=== PATIENT | male | born 1975 | race Caucasian/White ===

== ENCOUNTER 2017-07-24 02:44 | Day surgery (SDC) | payer MEDICAID, OTHER ==
[2017-07-24] MEDS ORDERED: NS 1,000 ML IV ONE (03:11)
[2017-07-24] MEDS ORDERED: ONDANSETRON 4 MG/2 ML VIAL IVP ONE ×2 (03:11→05:33)
--- NOTE | 2017-07-24 03:12 | EDPHY ---
H & P Stated Complaint: MID ABD PAIN/NAUSEA Time Seen by Provider: 07/24/17 02:57 HPI/ROS: Chief Complaint: Abdominal pain HPI: 42-year-old male began having central abdominal pain about 4 hr ago. This been associated with some nausea and vomiting. No diarrhea or constipation. Does not have a history of similar pain in the past. Pain comes in waves ranging from a 7 to a 9/10. No fevers or chills. No cough. There are no aggravating or alleviating factors. Has not had any abdominal operations in the past. ROS: 10 point Review of Systems is negative except as noted in the HPI. PMH: Schwannoma Social History: No smoking, no alcohol, no recreational drug use Family History: non-contributory Physical Exam: Gen: Awake, Alert, No Distress HEENT: Nose: no rhinorrhea Eyes: PERRLA, EOMI Mouth: Moist mucosa Neck: Supple, no JVD Chest: nontender, lungs clear to auscultation Heart: S1, S2 normal, no murmur Abd: Soft, tender in the right lower quadrant central abdomen, mild voluntary guarding Back: no CVA tenderness, no midline tenderness Ext: no edema, non-tender Skin: no rash Neuro: CN II-XII intact, Sensation grossly intact, Strength 5/5 in bilateral upper and lower extremities - Personal History Current Tetanus Diphtheria and Acellular Pertussis (TDAP): No - Medical/Surgical History Hx Asthma: No Hx Chronic Respiratory Disease: No Hx Diabetes: No Hx Cardiac Disease: No Hx Renal Disease: No Hx Cirrhosis: No Hx Alcoholism: No Hx HIV/AIDS: No Hx Splenectomy or Spleen Trauma: No Other PMH: WPW, fibramylagia, "fatty liver", migraines, BRAIN TUMOR - Social History Smoking Status: Never smoked Constitutional: Initial Vital Signs Temperature (C) 36.4 C 07/24/17 02:54 Heart Rate 80 07/24/17 02:54 Respiratory Rate 16 07/24/17 02:54 Blood Pressure 132/86 H 07/24/17 02:54 O2 Sat (%) 94 07/24/17 02:54 O2 Delivery Mode Room Air Allergies/Adverse Reactions: ketorolac tromethamine [From Toradol] Allergy (Verified 08/03/14 09:48) Home Medications: Medication Instructions Recorded Herbal Drugs 08/09/16 Otc Allergy Med PO DAILY06 12/19/15 Cyclobenzaprine 07/24/17 Medical Decision Making - Diagnostics Imaging Results: CT scan of the abdomen pelvis shows a 9 mm appendix with an appendicolith and richard appendicular edema consistent with acute appendicitis. Interpreted by Dr. Og. Imaging: Discussed imaging studies w/ railway signal operator Radiologist ED Course/Re-evaluation: CT scan consistent with acute appendicitis. I have paged General surgery. - Data Points Laboratory Results: Laboratory Results 07/24/17 03:09 07/24/17 03:09 07/24/17 07/24/17 03:09 03:09 WBC 13.20 10^3/uL H 10^3/uL (3.80-9.50) RBC 5.56 10^6/uL 10^6/uL (4.40-6.38) Hgb 16.1 g/dL g/dL (13.7-17.5) Hct 46.3 % % (40.0-51.0) MCV 83.3 fL fL (81.5-99.8) MCH 29.0 pg pg (27.9-34.1) MCHC 34.8 g/dL g/dL (32.4-36.7) RDW 13.0 % % (11.5-15.2) Plt Count 227 10^3/uL 10^3/uL (150-400) MPV 9.5 fL fL (8.7-11.7) Neut % (Auto) 77.7 % H % (39.3-74.2) Lymph % (Auto) 14.2 % L % (15.0-45.0) [place] % (Auto) 6.1 % % (4.5-13.0) Eos % (Auto) 1.0 % % (0.6-7.6) Baso % (Auto) 0.3 % % (0.3-1.7) Nucleat RBC Rel Count 0.0 % % (0.0-0.2) Absolute Neuts (auto) 10.26 10^3/uL H 10^3/uL (1.70-6.50) Absolute Lymphs (auto) 1.87 10^3/uL 10^3/uL (1.00-3.00) Absolute Monos (auto) 0.81 10^3/uL H 10^3/uL (0.30-0.80) Absolute Eos (auto) 0.13 10^3/uL 10^3/uL (0.03-0.40) Absolute Basos (auto) 0.04 10^3/uL 10^3/uL (0.02-0.10) Absolute Nucleated RBC 0.00 10^3/uL 10^3/uL (0-0.01) Immature Gran % 0.7 % % (0.0-1.1) Immature Gran # 0.09 10^3/uL 10^3/uL (0.00-0.10) Sodium 144 mEq/L mEq/L (135-145) Potassium 4.1 mEq/L mEq/L (3.5-5.2) Chloride 109 mEq/L mEq/L (97-110) Carbon Dioxide 25 mEq/l mEq/l (22-31) Anion Gap 10 mEq/L mEq/L (8-16) BUN 17 mg/dL mg/dL (7-23) Creatinine 1.0 mg/dL mg/dL (0.7-1.3) Estimated GFR > 60 Glucose 106 mg/dL H mg/dL (70-100) Calcium 9.4 mg/dL mg/dL (8.5-10.4) Total Bilirubin 0.6 mg/dL mg/dL (0.1-1.4) AST 28 IU/L IU/L (17-59) ALT 61 IU/L IU/L (21-72) Alkaline Phosphatase 94 IU/L IU/L (38-126) Total Protein 7.2 g/dL g/dL (6.3-8.2) Albumin 4.4 g/dL g/dL (3.5-5.0) Lipase 708 IU/L H IU/L (23-300) Medications Given: Discontinued Medications Sodium Chloride (Ns) 1,000 mls @ 0 mls/hr IV ONCE ONE; Wide Open PRN Reason: Protocol Stop: 07/24/17 03:12 Last Admin: 07/24/17 03:19 Dose: 1,000 mls Morphine Sulfate (Morphine) 4 mg IVP EDNOW ONE Stop: 07/24/17 03:20 Last Admin: 07/24/17 03:22 Dose: 4 mg Ondansetron HCl (Zofran) 4 mg IVP EDNOW ONE Stop: 07/24/17 03:12 Last Admin: 07/24/17 03:19 Dose: 4 mg Departure - Departure Disposition: [facility] Inpatient Acute Clinical Impression: Acute appendicitis Condition: Good Referrals: LUIS ANTONIO MCDONALD [Other] - As per Instructions
[2017-07-24 03:18] LABS: PLATELET COUNT 227 10^3/uL (150-400)
[2017-07-24] MEDS ORDERED: IOPAMIDOL (ISOVUE-300) 100 ML BTL ONE (03:28)
[2017-07-24] MEDS ORDERED: ERTAPENEM 1 GM VIAL IV ONE (04:25)
[2017-07-24] MEDS ORDERED: LR 1,000 ML IV SCH (05:30)
[2017-07-24] MEDS ORDERED: ONDANSETRON 4 MG/2 ML VIAL ONE ×2 (05:33→06:48)
--- NOTE | 2017-07-24 05:34 | PDGENHP ---
History and Physical - Chief Complaint abd pain - History of Present Illness 42 y/o male with abd pain since 0. Patient came to the ED and was seen by Dr. Turner. Surgical consult was requested when a CT showed appendicitis. He reports chronic low grade abd pain and constipation for "years" History Information - Allergies/Home Medication List Allergies/Adverse Reactions: ketorolac tromethamine [From Toradol] Allergy (Verified 08/03/14 09:48) Home Medications: Herbal Drugs 12/19/15 [Last Taken Unknown] Otc Allergy Med PO DAILY06 12/19/15 [Last Taken Unknown] Cyclobenzaprine 07/24/17 [Last Taken Unknown] I have personally reviewed and updated: family history (grandmother is 98 and healthy), medical history, social history (here with his life partner/grew up in [place]), surgical history - Past Medical History Additional medical history: WPW w/ ablation at the [facility], [employer]OOFER meningioma/ schwanoma, "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 - Surgical History Reports: ablation - Social History Smoking Status: Never smoked Alcohol Use: Rarely Drug Use: None Review of Systems Review of Systems: Constitutional: Reports: no symptoms EENMT: Reports: nose congestion Cardiac: Reports: no symptoms Respiratory: Reports: no symptoms Gastrointestinal: Reports: vomitting, abdominal pain, abdominal distention, constipation, nausea Genitourinary: Reports: no symptoms Muscolosketal: Reports: muscle stiffness Physical Exam Physical Exam: Temp Pulse Resp BP Pulse Ox 37 C 86 16 134/81 H 94 07/24/17 04:42 07/24/17 04:42 07/24/17 04:42 07/24/17 04:42 07/24/17 04:42 Constitutional: appears nourished, uncomfortable Eyes: anicteric sclera Ears, Nose, Mouth, Throat: moist mucous membranes Cardiovascular: regular rate and rhythym, no murmur, rub, or gallop Respiratory: no respiratory distress, no rales or rhonchi, clear to auscultation Gastrointestinal: tenderness ( diffusely with focal guarding RLQ), guarding, other (+ Rovsing's) Genitourinary: no bladder fullness Skin: warm, normal color Neurologic: AAOx3 Psychiatric: interacting appropriately, anxious Lymph, Heme, Immunologic: no cervical LAD, no supraclavicular LAD Lab Data & Imaging Review 07/24/17 03:09 07/24/17 03:09 WBC 13.20 10^3/uL (3.80-9.50) H 07/24/17 03:09 RBC 5.56 10^6/uL (4.40-6.38) 07/24/17 03:09 Hgb 16.1 g/dL (13.7-17.5) 07/24/17 03:09 Hct 46.3 % (40.0-51.0) 07/24/17 03:09 MCV 83.3 fL (81.5-99.8) 07/24/17 03:09 MCH 29.0 pg (27.9-34.1) 07/24/17 03:09 MCHC 34.8 g/dL (32.4-36.7) 07/24/17 03:09 RDW 13.0 % (11.5-15.2) 07/24/17 03:09 Plt Count 227 10^3/uL (150-400) 07/24/17 03:09 MPV 9.5 fL (8.7-11.7) 07/24/17 03:09 Neut % (Auto) 77.7 % (39.3-74.2) H 07/24/17 03:09 Lymph % (Auto) 14.2 % (15.0-45.0) L 07/24/17 03:09 [place] % (Auto) 6.1 % (4.5-13.0) 07/24/17 03:09 Eos % (Auto) 1.0 % (0.6-7.6) 07/24/17 03:09 Baso % (Auto) 0.3 % (0.3-1.7) 07/24/17 03:09 Nucleat RBC Rel Count 0.0 % (0.0-0.2) 07/24/17 03:09 Absolute Neuts (auto) 10.26 10^3/uL (1.70-6.50) H 07/24/17 03:09 Absolute Lymphs (auto) 1.87 10^3/uL (1.00-3.00) 07/24/17 03:09 Absolute Monos (auto) 0.81 10^3/uL (0.30-0.80) H 07/24/17 03:09 Absolute Eos (auto) 0.13 10^3/uL (0.03-0.40) 07/24/17 03:09 Absolute Basos (auto) 0.04 10^3/uL (0.02-0.10) 07/24/17 03:09 Absolute Nucleated RBC 0.00 10^3/uL (0-0.01) 07/24/17 03:09 Immature Gran % 0.7 % (0.0-1.1) 07/24/17 03:09 Immature Gran # 0.09 10^3/uL (0.00-0.10) 07/24/17 03:09 Sodium 144 mEq/L (135-145) 07/24/17 03:09 Potassium 4.1 mEq/L (3.5-5.2) 07/24/17 03:09 Chloride 109 mEq/L (97-110) 07/24/17 03:09 Carbon Dioxide 25 mEq/l (22-31) 07/24/17 03:09 Anion Gap 10 mEq/L (8-16) 07/24/17 03:09 BUN 17 mg/dL (7-23) 07/24/17 03:09 Creatinine 1.0 mg/dL (0.7-1.3) 07/24/17 03:09 Estimated GFR > 60 07/24/17 03:09 Glucose 106 mg/dL (70-100) H 07/24/17 03:09 Calcium 9.4 mg/dL (8.5-10.4) 07/24/17 03:09 Total Bilirubin 0.6 mg/dL (0.1-1.4) 07/24/17 03:09 AST 28 IU/L (17-59) 07/24/17 03:09 ALT 61 IU/L (21-72) 07/24/17 03:09 Alkaline Phosphatase 94 IU/L (38-126) 07/24/17 03:09 Total Protein 7.2 g/dL (6.3-8.2) 07/24/17 03:09 Albumin 4.4 g/dL (3.5-5.0) 07/24/17 03:09 Lipase 708 IU/L (23-300) H 07/24/17 03:09 Visualized and Interpreted imaging results: Yes Interpretation: appendicolith with mild inflammation appendix/Right hepatic lesion segment 6 c/w hemangioma/obstipation Assessment & Plan Assessment: Acute appendicitis (Acute) Hx WPW s/p ablation Plan: I recommended lap appendectomy 1 gm Ertapenam administered in the ED We discussed the procedure, risks and expected recovery. Informed consent was obtained
[2017-07-24] MEDS ORDERED: PROPOFOL 200 MG/20 ML VIAL ONE ×2 (05:44→05:45)
[2017-07-24] MEDS ORDERED: fentaNYL 100 MCG/2 ML INJ ONE ×2 (05:44→08:56)
[2017-07-24] MEDS ORDERED: LIDOCAINE 2% 100 MG/5 ML SYR ONE (05:45)
[2017-07-24] MEDS ORDERED: ROCURONIUM 50 MG/5 ML VIAL ONE (05:45)
--- NOTE | 2017-07-24 05:59 | PDANEPAE ---
ANE History of Present Illness here for urgent lap appy FREDDY Past Medical History - Cardiovascular History Hx Hypertension: No Hx Arrhythmias: No Hx Chest Pain: No Hx Coronary Artery / Peripheral Vascular Disease: No Hx CHF / Valvular Disease: No Hx Palpitations: No Cardiovascular History Comment: WPW 2 PREV ABLATIONS. CURRENTLY NO WINDOW TRIMMER IN THIS AREA - Pulmonary History Hx COPD: No Hx Asthma/Reactive Airway Disease: No Hx Recent Upper Respiratory Infection: No Hx Oxygen in Use at Home: No Hx Sleep Apnea: No - Neurologic History Hx Cerebrovascular Accident: No Hx Seizures: No Hx Dementia: No Neurologic History Comment: BRAIN TUMOR - Endocrine History Hx Diabetes: No - Renal History Hx Renal Disorders: No - Liver History Hx Hepatic Disorders: No - Neurological & Psychiatric Hx Hx Neurological and Psychiatric Disorders: No Neurological / Psychiatric History Comment: CHRONIC PAIN. ANXIETY - Cancer History Hx Cancer: No - Congenital Disorder History Hx Congenital Disorders: Yes Congenital History Comment: WPW - GI History Hx Gastrointestinal Disorders: Yes Gastrointestinal History Comment: CELIAC TEST CAME BACK NORMAL. RECENTLY STARTED USING ENZYMES WHICH HAVE HELPED. CHRONIC NAUSEA. BONE PAIN/ NEUROPATHY. FLU LIKE SYMPTOMS. VITAMIN DEFICIENCY - Other Health History Other Health History: BONE PAIN/NEUROPATHY - Chronic Pain History Chronic Pain: Yes (GI) - Surgical History Prior Surgeries: ABLATIONS X2 FOR WPWMOST RECENT 2001. [place] THEN WENT TO [place] FOR A WHILE FREDDY Review of Systems Review of Systems: - Exercise capacity Exercise capacity: >=4 METS ANE Patient History - Allergies Allergies/Adverse Reactions: ketorolac tromethamine [From Toradol] Allergy (Verified 08/03/14 09:48) - Home Medications Home Medications: Herbal Drugs 12/19/15 [Last Taken Unknown] Otc Allergy Med PO DAILY06 12/19/15 [Last Taken Unknown] Cyclobenzaprine 07/24/17 [Last Taken Unknown] - NPO status NPO Status: no food or drink >8 hours NPO Since - Liquids (Date): 07/24/17 NPO Since - Liquids (Time): 01:00 NPO Since - Solids (Date): 07/23/17 NPO Since - Solids (Time): 19:00 - Anes Hx Anes Hx: no prior problems - Smoking Hx Smoking Status: Never smoked - Alcohol Use Alcohol Use: Rarely - Family Anes Hx Family Anes Hx: none ANE Labs/Vital Signs - Labs Result Diagrams: 07/24/17 03:09 07/24/17 03:09 - Vital Signs Blood Pressure: 126/78 Heart Rate: 66 Respiratory Rate: 14 O2 Sat (%): 98 Height: 172.72 cm Weight: 79.379 kg ANE Physical Exam - Airway Neck exam: FROM Mallampati Score: Class 2 Mouth exam: normal dental/mouth exam - Pulmonary Pulmonary: no respiratory distress, clear to auscultation - Cardiovascular Cardiovascular: regular rate and rhythym, no murmur, rub, or gallop - ASA Status ASA Status: III ANE Anesthesia Plan Anesthesia Plan: general endotracheal anesthesia
[2017-07-24] MEDS ORDERED: BUPIVACAINE 0.25% 30 ML SDV ONE (06:01)
[2017-07-24] MEDS ORDERED: MIDAZOLAM 2 MG/2 ML VIAL IVP ONE (06:03)
[2017-07-24] MEDS ORDERED: DEXAMETHASONE 4 MG/ML VIAL ONE (06:48)
[2017-07-24] MEDS ORDERED: OXYCODONE/APAP 5/325 TAB PO PRN (07:20)
[2017-07-24] MEDS ORDERED: ONDANSETRON 4 MG/2 ML VIAL IVP PRN (07:20)
[2017-07-24] MEDS ORDERED: ACETAMINOPHEN 500 MG TAB PO PRN (07:20)
[2017-07-24] MEDS ORDERED: fentaNYL 100 MCG/2 ML INJ IVP PRN (07:20)
[2017-07-24] MEDS ORDERED: HYDROCODONE/APAP 5/325 TAB PO PRN (07:20)
[2017-07-24] MEDS ORDERED: NALOXONE HCL 0.4 MG/ML INJ IVP PRN (07:20)
--- NOTE | 2017-07-24 07:20 | POSTANESTH ---
Post Anesthetic Evaluation Cardiovascular Status: Normal, Stable, Similar to Pre-Op Cond Respiratory Status: Normal, Stable, Similar to Pre-op Cond. Level of Consciousness/Mental Status: Can Participate in Eval Pain Control: Adequate, Prn Tx Ordered Nausea/Vomiting Control: Adequate, Prn Tx Ordered Complications Possibly Related to Anesthesia: None Noted
[2017-07-24 07:21] VITALS: TEMP 97.5
--- NOTE | 2017-07-24 07:48 | POSTOPPROG ---
Post Op Note Date of Operation: 07/24/17 Surgeon: Sunny Forrest (, FACS) Anesthesiologist: Rhys Burnett MD Anesthesia: GET(General Endotracheal) Pre-op Diagnosis: appendicitis Post-op Diagnosis: same Procedure: lap appendectomy Findings: acute appendicitis Inf/Abcess present in the surg proc area at time of surgery?: Yes Depth: Organ Space
--- NOTE | 2017-07-24 08:04 | GOP ---
[f rep st] OPERATIVE REPORT DATE OF OPERATION: 07/24/2017 SURGEON: Sunny Forrest MD ANESTHESIA: General endotracheal. ANESTHESIOLOGIST: Rhys Burnett MD. PREOPERATIVE DIAGNOSIS: Acute appendicitis. POSTOPERATIVE DIAGNOSIS: Acute appendicitis. PROCEDURE PERFORMED: Laparoscopic appendectomy. FINDINGS: Mild early acute appendicitis without perforation, gangrene, or significant suppuration. ESTIMATED BLOOD LOSS: 5 cc. DESCRIPTION OF PROCEDURE: After informed consent was obtained, the patient was brought to the operat ing room and placed under general anesthesia. The abdomen was clipped, prepped, and draped in usual fashion. Before proceeding, a time-out and identification of the patient was performed. 0.25% Marcaine was used to infiltrate all incision sites. A longitudinal incision was made through t he base of the umbilicus and carried through the skin and subcutaneous tissues. Ventral traction was applied to the abdominal wall with a penetrating towel clamp and a Veress needle was introduced into the peritoneal cavity. Position was confirmed by saline infusion. A pneumoperitoneum was establish ed with CO2 gas to a pressure of 15 mmHg. The Veress needle was withdrawn and replaced with a 5 mm b ladeless trocar. A 30 degree scope was introduced and the peritoneal cavity was visualized. Additio nal 5 mm ports were placed in the suprapubic position, and a 12 mm port was placed in the left lower quadrant, both under direct visualization. This allowed introduction of atraumatic grasping forceps. The appendix was identified and grasped by the mesentery and elevated anteriorly. The mesoappendix was dissected down to the base of the appendix and dispatched with a Harmonic Scalpel. The appendix was from the cecum with a single firing of the BARBARA stapler and the appendix was retrieved through the left lower quadrant port site with an Endopouch. Hemostasis appeared secure. There was no significant fluid around the appendix and irrigation was not deemed necessary. The left lower quadrant port site was closed with a transfascial closure needle and 0 Vicryl suture. The pneumoperitoneum was evacuated. The remaining ports were removed. Subcutaneous tissues were ap proximated with 3-0 Monocryl suture. Skin was closed with 4-0 Monocryl suture in a subcuticular fash ion. Topical Dermabond was applied. The patient was returned extubated to the recovery room in sati sfactory condition. Needle, sponge, and instrument count were correct. COMPLICATIONS: None. /[id number]/MODL
[2017-07-24] MEDS: HYDROCODONE/APAP 5/325 TAB PO PRN ×2 (09:31→10:38)
[2017-07-24 09:42] VITALS: BP 129/80; PULSE 67; RESP 16; O2SAT 91
[2017-07-24] MEDS ORDERED: ONDANSETRON DISINTEGRATING 4 MG TAB ONE (12:25)
[2017-07-24] MEDS ORDERED: ONDANSETRON DISINTEGRATING 4 MG TAB PO ONE (12:30)
[2017-07-24] MEDS ORDERED: IBUPROFEN 600 MG TAB PO SCH (14:00)
== END 2017-07-24 12:45 | disposition home or self-care (01) ==
LOC: UNDOADMOB 04:26 → FSGY 04:26 → UNDODISOB 12:45 → FSGY 12:45
PROVIDERS: ATTEND Surgery
PROC: 0DTJ4ZZ Resection of Appendix, Percutaneous Endoscopic Approach (ICD-10-PCS; principal; 2017-07-24 06:00)
DX: K35.80 Unspecified acute appendicitis (principal)
CPT/HCPCS: 96374; J1100; J1335; J2001; J2250; J2270; J2405; J2704; J3010; Q9967

== ENCOUNTER 2017-07-27 00:09 | Emergency (ER) | payer OTHER ==
--- NOTE | 2017-07-27 00:24 | EDPHY ---
H & P Time Seen by Provider: 07/27/17 00:25 HPI/ROS: HPI CHIEF COMPLAINT: Abdominal pain HISTORY OF PRESENT ILLNESS: Patient very pleasant 42-year-old male, history of fibromyalgia, migraine headaches, presents emergency room with abdominal pain. Patient reports to me that he has appendix removed laparoscopically on or 07/24, 3 days ago, he presents emergency room with increasing left lower quadrant abdominal pain. He is unsure if she be having increasing abdominal pain status post surgery. He has not had a fever. He denies vomiting. He states normal bowel movement. He tells me that he has been taking his Percocet without any significant abdominal pain relief. Pain is located left lower quadrant. Denies chest pain or shortness of breath. Denies drainage from his incision sites. Past Medical History: Fibromyalgia, migraine headaches Past Surgical History: Recent appendectomy laparoscopic on the . Social History: Denies daily use of drugs alcohol tobacco products. Family History: Noncontributory ROS REVIEW OF SYSTEMS: A comprehensive 10 point review of systems is otherwise negative aside from elements mentioned in the history of present illness. Exam Constitutional appears well nontoxic no acute distress, triage nursing summary reviewed, vital signs reviewed, awake/alert. Eyes normal conjunctivae and sclera, EOMI, PERRLA. HENT normal inspection, atraumatic, moist mucus membranes, no epistaxis, neck supple/ no meningismus, no raccoon eyes. Respiratory clear to auscultation bilaterally, normal breath sounds, no respiratory distress, no wheezing. Cardiovascular rate normal, regular rhythm, no murmur, no edema, distal pulses normal. Gastrointestinal soft abdomen, normal bowel sounds, mild tenderness palpation around the laparoscopic sites, the laparoscopic sites appear clean dry and intact, mild tenderness palpation left lower quadrant but no peritoneal signs,, no rebound, no guarding, normal bowel sounds, no distension, no pulsatile mass. Genitourinary no CVA tenderness. Musculoskeletal no midline vertebral tenderness, full range of motion, no calf swelling, no tenderness of extremities, no meningismus, good pulses, neurovascularly intact. Skin pink, warm, & dry, no rash, skin atraumatic. Neurologic awake, alert and oriented x 3, AAOx3, moves all 4 extremities equally, motor intact, sensory intact, CN II-XII intact, normal cerebellar, normal vision, normal speech. Psychiatric normal mood/affect. Heme/Lymph/Immune no lymphadenopathy. Differential diagnosis includes but is not limited to and in no particular order : Constipation, intra-abdominal abscess Bowel obstruction, gallbladder disease , diverticulitis, colitis, enteritis, perforated viscus, gastritis, GERD, esophagitis, urinary tract infection, pyelonephritis, kidney stones Medical Decision Making: Plan for this patient IV establishment blood draw, IV fluids, IV Zofran, IV fentanyl for pain control, CT scan abdomen pelvis with IV contrast rule out intra-abdominal abscess or postsurgical complication. Re-evaluation: 0127: CT scan abdomen pelvis with IV contrast reviewed. No intra-abdominal abscess her free air. There is subcutaneous air present consistent with postsurgical changes from recent appendectomy. No significant free fluid. There is some thickened right lower quadrant intestinal wall some fluid filled but not dilated. No evidence of obstruction. I will discuss the case with surgery. To review the CT scan. 0130AM: Spoke with Dr. Weeks. Reviewed the case with him. Review the CT scan with him. Reviewed his blood work. He is comfortable the patient going home. Discussed at length with the patient about going home is comfortable going home. I have discussed return precautions with him. He understands return emergency room if develops worsening abdominal pain, fever, vomiting. I do recommend he follows up with surgery. I do feel that the patient go home his blood work is reassuring. Vital signs reassuring. He is not fever. He is not vomiting. Eating and drinking appropriately. Having bowel movements. He is comfortable going home. Return precautions discussed he understands. Source: Patient - Medical/Surgical History Hx Asthma: No Hx Chronic Respiratory Disease: No Hx Diabetes: No Hx Cardiac Disease: No Hx Renal Disease: No Hx Cirrhosis: No Hx Alcoholism: No Hx HIV/AIDS: No Hx Splenectomy or Spleen Trauma: No Other PMH: WPW, fibramylagia, "fatty liver", migraines, BRAIN TUMOR - Social History Smoking Status: Never smoked Constitutional: Initial Vital Signs Temperature (C) 36.9 C 07/27/17 00:22 Heart Rate 76 07/27/17 00:22 Respiratory Rate 16 07/27/17 00:22 Blood Pressure 147/100 H 07/27/17 00:22 O2 Sat (%) 93 07/27/17 00:22 O2 Delivery Mode Room Air Allergies/Adverse Reactions: ketorolac tromethamine [From Toradol] Allergy (Verified 08/03/14 09:48) Home Medications: Medication Instructions Recorded Herbal Drugs 12/19/15 Otc Allergy Med PO DAILY06 12/19/15 Cyclobenzaprine 07/24/17 Hydrocodone/APAP 5/325 [[place] 1 - 2 tab PO Q4HRS PRN #20 tab 07/24/17 5/325 (*)] Medical Decision Making - Data Points Laboratory Results: Laboratory Results 07/27/17 00:35 07/27/17 00:35 07/27/17 07/27/17 07/27/17 00:45 00:35 00:35 WBC 8.15 10^3/uL 10^3/uL (3.80-9.50) RBC 5.61 10^6/uL 10^6/uL (4.40-6.38) Hgb 16.0 g/dL g/dL (13.7-17.5) Hct 46.5 % % (40.0-51.0) MCV 82.9 fL fL (81.5-99.8) MCH 28.5 pg pg (27.9-34.1) MCHC 34.4 g/dL g/dL (32.4-36.7) RDW 13.0 % % (11.5-15.2) Plt Count 233 10^3/uL 10^3/uL (150-400) MPV 9.4 fL fL (8.7-11.7) Neut % (Auto) 60.8 % % (39.3-74.2) Lymph % (Auto) 25.9 % % (15.0-45.0) [place] % (Auto) 8.6 % % (4.5-13.0) Eos % (Auto) 1.8 % % (0.6-7.6) Baso % (Auto) 0.7 % % (0.3-1.7) Nucleat RBC Rel Count 0.0 % % (0.0-0.2) Absolute Neuts (auto) 4.95 10^3/uL 10^3/uL (1.70-6.50) Absolute Lymphs (auto) 2.11 10^3/uL 10^3/uL (1.00-3.00) Absolute Monos (auto) 0.70 10^3/uL 10^3/uL (0.30-0.80) Absolute Eos (auto) 0.15 10^3/uL 10^3/uL (0.03-0.40) Absolute Basos (auto) 0.06 10^3/uL 10^3/uL (0.02-0.10) Absolute Nucleated RBC 0.00 10^3/uL 10^3/uL (0-0.01) Immature Gran % 2.2 % H % (0.0-1.1) Immature Gran # 0.18 10^3/uL H 10^3/uL (0.00-0.10) VBG Lactic Acid 1.0 mmol/L mmol/L (0.7-2.1) Sodium 142 mEq/L mEq/L (135-145) Potassium 4.0 mEq/L mEq/L (3.5-5.2) Chloride 106 mEq/L mEq/L (97-110) Carbon Dioxide 25 mEq/l mEq/l (22-31) Anion Gap 11 mEq/L mEq/L (8-16) BUN 19 mg/dL mg/dL (7-23) Creatinine 0.9 mg/dL mg/dL (0.7-1.3) Estimated GFR > 60 Glucose 108 mg/dL H mg/dL (70-100) Calcium 9.2 mg/dL mg/dL (8.5-10.4) Total Bilirubin 0.7 mg/dL mg/dL (0.1-1.4) Conjugated Bilirubin 0.4 mg/dL mg/dL (0.0-0.5) Unconjugated Bilirubin 0.3 mg/dL mg/dL (0.0-1.1) AST 26 IU/L IU/L (17-59) ALT 55 IU/L IU/L (21-72) Alkaline Phosphatase 85 IU/L IU/L (38-126) Total Protein 6.8 g/dL g/dL (6.3-8.2) Albumin 4.0 g/dL g/dL (3.5-5.0) Lipase 86 IU/L IU/L (23-300) Medications Given: Discontinued Medications Fentanyl (Sublimaze) 50 mcg IVP EDNOW ONE Stop: 07/27/17 00:36 Last Admin: 07/27/17 00:36 Dose: 50 mcg Sodium Chloride (Ns) 1,000 mls @ 0 mls/hr IV EDNOW ONE; Wide Open PRN Reason: Protocol Stop: 07/27/17 00:27 Last Admin: 07/27/17 00:32 Dose: 1,000 mls Ondansetron HCl (Zofran) 4 mg IVP EDNOW ONE Stop: 07/27/17 00:36 Last Admin: 07/27/17 00:43 Dose: Not Given Departure - Departure Disposition: Home, Routine, Self-Care Clinical Impression: Abdominal pain Qualifiers: Abdominal location: generalized Qualified Code(s): R10.84 - Generalized abdominal pain Condition: Good Instructions: Acute Abdominal Pain (ED) Additional Instructions: 1. Return emergency room if develops worsening abdominal pain fever vomiting. 2. Follow up with surgery. 3. Return if worsening symptoms.. Referrals: LUIS ANTONIO MCDONALD [Other] - As per Instructions Sunny Forrest MD [Medical Doctor] - As per Instructions
[2017-07-27 00:25] VITALS: RESP 16; TEMP 98.4
[2017-07-27] MEDS ORDERED: NS 1,000 ML IV ONE (00:26)
[2017-07-27] MEDS ORDERED: fentaNYL 100 MCG/2 ML INJ ONE (00:35)
[2017-07-27] MEDS ORDERED: ONDANSETRON 4 MG/2 ML VIAL IVP ONE (00:35)
[2017-07-27] MEDS ORDERED: fentaNYL 100 MCG/2 ML INJ IVP ONE (00:35)
[2017-07-27] MEDS ORDERED: IOPAMIDOL (ISOVUE-300) 100 ML BTL ONE (00:57)
[2017-07-27 01:02] LABS: PLATELET COUNT 233 10^3/uL (150-400)
[2017-07-27 02:00] VITALS: BP 128/86; PULSE 74; O2SAT 96
== END 2017-07-27 02:00 | disposition home or self-care (01) ==
DX: R10.84 Generalized abdominal pain (principal); E86.9 Volume depletion, unspecified
CPT/HCPCS: 96374; J3010; Q9967

== ENCOUNTER 2018-03-26 13:31 | Emergency (ER) | payer OTHER ==
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
[2018-03-26] MEDS ORDERED: ONDANSETRON DISINTEGRATING 4 MG TAB PO ONE (14:56)
[2018-03-26] MEDS ORDERED: HYDROCODONE/APAP 5/325 TAB PO ONE (14:56)
[2018-03-26 16:26] VITALS: BP 140/94
== END 2018-03-26 16:23 | disposition home or self-care (01) ==
DX: S06.0X0A Concussion without loss of consciousness, initial encounter (principal); S16.1XXA Strain of muscle, fascia and tendon at neck level, initial encounter; W22.8XXA Striking against or struck by other objects, initial encounter; Y92.9 Unspecified place or not applicable; Y93.9 Activity, unspecified; Y99.9 Unspecified external cause status

== ENCOUNTER 2018-06-22 09:22 | Emergency (ER) | payer OTHER ==
--- NOTE | 2018-06-22 11:10 | EDPHY ---
General Time Seen by Provider: 06/22/18 10:19 Narrative: CLINICAL IMPRESSION: Left elbow pain and swelling ASSESSMENT/PLAN: Patient is a 43-year-old male with unknown autoimmune disorder currently being worked up by the [facility] who presents with complaint of atraumatic left elbow pain and swelling. Patient is nontoxic-appearing, he is in no acute distress on arrival. Physical examination reveals mildly edematous left elbow overlying the olecranon process, suspect acute bursitis. There was no evidence of septic bursitis, septic arthritis, compartment syndrome, DVT or neurovascular compromise. Patient denies any trauma, do not suspect fracture or dislocation. Patient was placed in an Raymond wrap and will continue compression at home. He is well established with his primary care provider will call to schedule follow-up appointment for repeat examination. Return precautions discussed-patient to return to the emergency Department for significantly worsening or uncontrolled pain, significant swelling, numbness or tingling of the extremity, paleness or coolness of her digits, fever or for any other concerning symptom. The patient verbalizes understanding and he is in agreement with this plan. DIFFERENTIAL DX: Differential diagnosis including but not limited to and in no specific order, fracture, dislocation, bursitis, septic bursitis, septic arthritis, traumatic injury, contusion ED COURSE: 1105: Case discussed with Dr. Faust CHIEF COMPLAINT: Left elbow pain and swelling HPI: Patient is a 43-year-old male who presents to the emergency department with left elbow pain and swelling. Patient reports approximately 4 weeks ago he noted some swelling and mild tenderness to the left elbow. He denies any trauma or injury at that time. This slowly went away on its own, he has had 3 other episodes exactly the same. Patient endorses that he is currently being worked up for an autoimmune disorder by the [facility] secondary to intermittent joint pain that has been ongoing over the years. Patient currently takes prednisone in stages, is not currently taking it at this time. Patient denies any fever, chills, redness or warmth of the elbow. He denies any limited or decreased mobility, states that it is mildly tender at times. He has not tried taking anything for the pain. He denies any numbness or tingling of the extremity. PAST MEDICAL HISTORY: Autoimmune disorder Pertinent Past Surgical History: Denies Family History: Noncontributory Social History: Denies illicit drug use or cigarette smoking ROS: A full 10 point review of systems was negative except for those mentioned in HPI. PHYSICAL EXAM: General Appearance: Well-appearing, no acute distress. HEENT: TMs are clear bilaterally no perforation or FB, no injection, no evidence of serous or mucopurulent otitis. Oropharynx clear is no erythema or exudates, no tonsillar hypertrophy or asymmetry. Dentition without abnormality. Eyes: PERRLA, no acute vision change, nystagmus, swelling, discharge, pain or photosensitivity. Conjunctiva pink, no pallor or injection. Neck: Supple, nontender, no lymphadenopathy, no midline pain, FROM, no meningismus. Respiratory: There are no retractions, lungs are clear to auscultation. Cardiac: Regular rate and rhythm, no murmurs or gallops. Gastrointestinal: Abdomen is soft, nontender, bowel sounds normal, no masses/ hernia, no rigidity, guarding or focal peritoneal findings. Skin: Warm, dry, no rashes, no nodules on palpation. Upper Extremities: Left elbow with mild edema overlying the olecranon process, there is no associated erythema or calor. Patient has full range of motion and is mildly tender at the olecranon process. Patient is able to supinate and pronate without difficulty. The radial, ulnar and median nerves were all tested. Radial nerve: Patient is able to extend wrist and fingers of the local joints. Ulnar nerve: Patient is able to abduct all fingers. Median nerve patient is able to oppose thumb to pinky. Intact distal pulses, Full range of motion intact, no tenderness, no ecchymosis or edema Lower Extremities: Intact distal pulses, No edema, No tenderness, No cyanosis, full range of motion intact, No calf tenderness bilaterally. MEDICAL DECISION MAKING: Patient was seen independently. Secondary supervising physician at time of evaluation was Dr. Faust, he did not evaluate this patient. Diagnosis: Left elbow pain and swelling. Summary: See Assessment and Plan for summary of ED visit Clinical lab tests: Not applicable. Independent visualization of images, tracing, or specimens: Not applicable. Decision to obtain medical records or history from someone other than the patient: No. Review / Summarize previous medical records: Yes. Discussed patient with another provider: Yes, Dr. Faust. Patient Progress: Stable, discharge . - History Smoking Status: Never smoked - Objective Vital Signs: Initial Vital Signs Temperature (C) 36.5 C 06/22/18 09:29 Heart Rate 85 06/22/18 09:29 Respiratory Rate 16 06/22/18 09:29 Blood Pressure 128/92 H 06/22/18 09:29 O2 Sat (%) 97 06/22/18 09:29 O2 Delivery Mode Room Air Allergies/Adverse Reactions: ketorolac tromethamine [From Toradol] Allergy (Verified 08/03/14 09:48) Home Medications: Medication Instructions Recorded Herbal Drugs 12/19/15 Otc Allergy Med PO DAILY06 12/19/15 Cyclobenzaprine 07/24/17 Hydrocodone/APAP 5/325 [[place] 1 - 2 tab PO Q4HRS PRN #20 tab 07/24/17 5/325 (*)] Departure - Departure Disposition: Home, Routine, Self-Care Clinical Impression: Swelling of joint, elbow, left Condition: Good Instructions: Elbow Bursitis (ED) Additional Instructions: DISCHARGE INSTRUCTIONS FROM YOUR DOCTOR Thank you for visiting our emergency department today. Please keep in mind that discharge from the emergency department does not mean that there is nothing wrong - it simply means that we have not identified an emergency condition that requires further evaluation or treatment in the hospital. You should always plan to follow up with primary care for re-evaluation of your condition in the next 2-3 days. Continue wearing your Raymond wrap as needed for comfort. Please follow up with your primary care provider this week for repeat examination. People present with illnesses and injuries in different ways, and it is always possible that we have missed something. You may always return for re-evaluation if symptoms worsen or if they are not improving or if you develop new/different symptoms. Again, thank you for choosing our emergency department. We hope that you feel better. Referrals: [facility] AN[facility]CDON[facility] [Other] - 1-2 days without fail
[2018-06-22 11:24] VITALS: BP 133/99
== END 2018-06-22 11:30 | disposition home or self-care (01) ==
DX: M25.422 Effusion, left elbow (principal)